=== PATIENT | male | born 1940 | race Caucasian/White ===

== ENCOUNTER → 2025-05-19 11:46 | Outpatient (REF) | payer OTHER, SELFPAY | LOC: RAD 11:46 | PROVIDERS: ATTENDING PHYSICIAN Student in an Organized Health Care Education/Training Program; FAMILY PHYSICIAN Internal Medicine; OTHER PHYSICIAN Internal Medicine Cardiovascular Disease | DX: I35.0 Nonrheumatic aortic (valve) stenosis (principal); I50.9 Heart failure, unspecified; I48.91 Unspecified atrial fibrillation; I10 Essential (primary) hypertension; I25.10 Atherosclerotic heart disease of native coronary artery without angina pectoris; I48.0 Paroxysmal atrial fibrillation; E78.5 Hyperlipidemia, unspecified | CPT/HCPCS: 74174; 75572; Q9967 ==

== ENCOUNTER 2025-05-26 06:51 | Day surgery (SDC) | payer OTHER, SELFPAY ==
[2025-05-26] VITALS (13 sets, daily range): BP systolic 136–176; BP diastolic 82–116; BMI 34.5
--- NOTE | 2025-05-26 14:15 | ITS.CL.PN ---
Track Helper - Procedure Note
Procedure
Procedure Note:
CARDIAC CATHETERIZATION REPORT
Date of Procedure: 05/26/2025
Referring: Dr. Jason Bailey MD
Indication: new cardiomyopathy, symptomatic severe aortic valve stenosis
PROCEDURE(S)
1. right heart catheterization
2. left heart catheterization
3. coronary angiography
ACCESS
1. 6F right common femoral artery (closure: Angioseal x1)
2. 6F right femoral vein (closure: manual hemostasis)
CATHETERS
1. 6F [place]
2. 6F [place]
3. 6F JR4
4. 6F JL4
5. 6F AL1
6. 6F LUISA
MODERATE SEDATION: 45 minutes of moderate sedation was utilized. An independent medical appliance maker was present to assist with and help manage the patient's level of consciousness and physiologic status.
HEMODYNAMIC DATA
LV 145/14 (EDP 17) mmHg
AO 130/80 (mean 100) mmHg
RA 14 mmHg
RV 45/8 (EDP 13) mmHg
PA 43/21 (mean 29) mmHg
PCWP 19 mmHg
SaO2 97.2 %
SvO2 66.3 %
Hb 13.0 g/dL
CO/CI 5.17/2.29 L/min/m2
SVR 1393 dsc*-5
PVR 1.9 [place] units
Valve study: mean gradient 15 mmHg at heart rate 83 bpm giving a stroke volume index of 28 mL/m2 and calculated valve area of 1.64 cm2 (indexed 0.73 cm2/m2)
CORONARY ANGIOGRAPHY
Dominance: right
LM: large, normal
LAD: large vessel giving rise to a large branching D1. There is a sub-total occlusion proximally with competitive flow visualized in the mid vessel. The D1 takes off before the occlusion and is fed antegrade through a focal high grade stenosis with
TIMI3 flow. On LEW angiography, the LAD distal to the occlusion fills briskly with no significant disease.
LCx: large vessel giving rise to a moderate caliber OM1, large branching OM2, and small OM3. The OM1 is a severely diseased and fills both antegrade and retrograde flow via the SVG. The LCx distal to OM1 is sub-totally occluded. The OM2 and distal
LCx fills via the SVG-OM2 with brisk antegrade and retrograde flow.
RCA: large vessel giving rise to a moderate caliber RPDA and two small RPL branches. There is diffuse calcific disease throughout the proximal to mid vessel, focally up to 50% proximally.
BYPASS GRAFT ANGIOGRAPHY:
LEW-LAD: the LEW is taken as a pedicle and forms an anastomosis with the mid-LAD.
SVG-OM2: forms a patent anastomosis with the OM2 providing brisk antegrade and retrograde flow
RADIATION: dose 1029 mGy; DAP 88.6 Gy*cm2; fluoroscopy time 21.1 min
CONCLUSIONS
1. Obstructive coronary artery disease status post CABG as described with patent grafts. There is no significant change in coronary anatomy compared to description from cath report in 2019.
2. Mildly elevated biventricular filling pressures, mild pulmonary hypertension, and low-normal cardiac output.
3. Aortic valve study with dual lumen catheter demonstrates moderate aortic stenosis with mean gradient 15 mmHg, SVI 28 mL/m2, and MARTA 1.64 cm2
RECOMMENDATIONS
1. 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 Today will start low dose Entresto and spironolactone, and stop valsartan and amlodipine. Labs in 1 week with consideration of SGLT2i if labs stable.
2. Serial monitoring of aortic valve stenosis.
3. Aggressive secondary prevention of coronary artery disease.
4. Consideration for STENCIL MAKER-D if ejection fraction does not recover with GDMT optimization
Copy to: Dr. Jason Bailey MD (chef de cuisine); Dr. Fredis Flores MD (PCP)
Signed: John Fall MD, PhD
== END 2025-05-26 14:15 | disposition home or self-care (01) ==
LOC: CATH 06:51
PROVIDERS: ATTENDING PHYSICIAN Student in an Organized Health Care Education/Training Program; FAMILY PHYSICIAN Internal Medicine; OTHER PHYSICIAN Internal Medicine Cardiovascular Disease
DX: I25.10 Atherosclerotic heart disease of native coronary artery without angina pectoris (principal); I25.5 Ischemic cardiomyopathy; I42.8 Other cardiomyopathies; I35.0 Nonrheumatic aortic (valve) stenosis; Z95.1 Presence of aortocoronary bypass graft; I27.20 Pulmonary hypertension, unspecified
CPT/HCPCS: 93461; 99152; 99153; C1760; C1769; C1894; Q9967